=== PATIENT | male | born 1980 | race Two or more races ===

== ENCOUNTER 2024-01-22 08:54 | Outpatient (REF) | payer MEDICAID, SELFPAY ==
--- NOTE | ~2024-01-22 | XR_ITS ---
EXAMINATION: Bilateral knee series CLINICAL INFORMATION: Pain in the knees COMPARISON: None. TECHNIQUE: 3 views of right knee including AP upright. Single AP upright view of the left knee. FINDINGS: Right knee: Patellofemoral compartment: Marginal osteophytes indicative of mild osteoarthritis. No joint space narrowing. The medial and lateral compartments are unremarkable. No effusion. Left knee limited: The medial and lateral compartments and surrounding bone and soft tissues are normal. XR/XR knee LT 1V IMPRESSION: Right knee: Mild osteoarthritis of the patellofemoral compartment. Left knee unremarkable. Electronically signed by: Paul Herndon MD 01/26/2024 01:55 PM EST
--- NOTE | ~2024-01-22 | XR_ITS ---
EXAMINATION: Bilateral knee series CLINICAL INFORMATION: Pain in the knees COMPARISON: None. TECHNIQUE: 3 views of right knee including AP upright. Single AP upright view of the left knee. FINDINGS: Right knee: Patellofemoral compartment: Marginal osteophytes indicative of mild osteoarthritis. No joint space narrowing. The medial and lateral compartments are unremarkable. No effusion. Left knee limited: The medial and lateral compartments and surrounding bone and soft tissues are normal. XR/XR knee RT 3V IMPRESSION: Right knee: Mild osteoarthritis of the patellofemoral compartment. Left knee unremarkable. Electronically signed by: Paul Herndon MD 01/26/2024 01:55 PM EST
== END 2024-01-22 08:55 | disposition home or self-care (01) ==
LOC: HO.HOSX 08:54
PROVIDERS: Visit Provider Physician Assistant
DX: M25.561 Pain in right knee (principal); M25.562 Pain in left knee; M23.91 Unspecified internal derangement of right knee
CPT/HCPCS: 73560; 73562; 99212

== ENCOUNTER 2024-01-22 13:00 | Outpatient (AMB) | payer MEDICAID, SELFPAY ==
--- NOTE | 2024-01-22 13:32 | MHC.OFFVIS ---
Vital Signs 01/22/24 13:39 Height 5 ft 4 in Weight 209 lb BMI 35.9 Handedness Right Intake Visit Reasons: [employer]- Right knee pain Intake Note: Stanley is a 43 year old male who presents today as a new patient for a evaluation of his right knee pain, DOI 01/03/24. Patient reports ongoing pain for about a couple weeks. He states that he lifted a heavy box, when he turned to put it down her heard a pop in his knee. Patient reports he is unable to bend his knee or unable to sit properly. Patient has tried and failed meloxicam with no relief and using bangay with mild relief. Allergies No Known Allergies Allergy (Verified 01/22/24 13:38) HPI HPI [employer]- Right knee pain: Details: 43-year-old male who presents in the office today, as a new patient, for an evaluation of right knee pain. The patient presented as a Walk-In at [facility] Urgent care on 01/09/24 for right knee pain. The patient felt like ?knee came out of place? and experienced sharp pain in his right knee on 01/08/24. He has a history of right knee strain, 7 years ago and his right knee was placed in the cast for 20 days. He worked with physical therapy and noticed he was unable to completely bend his right knee. He was prescribed naproxen 500 mg PO BID. While in the office today, the patient reports experiencing right knee pain ongoing for a couple of weeks. He states that he lifted a heavy box, he heard a pop in his right knee when turning to put the box down. He mentions that he is unable to bend his right knee or to sit properly. He has tried and failed meloxicam with no relief. He is using topical Bangay pain medication with mild relief. [facility] Social History (Updated 01/22/24 @ 13:38 by Danny Maldonado) Alcohol intake: never Patient Tobacco Use Status: Never used Tobacco Current occupational status: unemployed Review of Systems Const All systems reviewed & are unremarkable except as noted in HPI and below Physical Exam Vital Signs: BMI result Body Mass Index 35.9 Const General: cooperative, healthy appearing and no acute distress Resp Effort & Inspection: normal respiratory effort and able to speak in complete sentences Cardio Rate: regular rate Peripheral pulses: Peripheral pulses 2+ throughout GI Palpation (GI): Soft to palpation Skin Lesions: no lesions Rashes: no rashes Extrem Other: Right knee: Normal to inspection. No ecchymosis, erythema, or edema. Range of motion is 0-90 degrees. NVI. Assessment & Plan Assessment & Plan (1) Internal derangement of right knee: Code(s): M23.91 - Unspecified internal derangement of right knee Category: Medical Plan Mr. Perez is a 43-year-old male who presents in the office today, as a new patient, for an evaluation of right knee pain. The patient presented as a Walk-In at [facility] Urgent care on 01/09/24 for right knee pain. The patient felt like ?knee came out of place? and experienced sharp pain in his right knee on 01/08/24. He has a history of right knee strain, 7 years ago and his right knee was placed in the cast for 20 days. He worked with physical therapy and noticed he was unable to completely bend his right knee. He was prescribed naproxen 500 mg PO BID. While in the office today, the patient reports experiencing right knee pain ongoing for a couple of weeks. He states that he lifted a heavy box, he heard a pop in his right knee when turning to put the box down. He mentions that he is unable to bend his right knee or to sit properly. He has tried and failed meloxicam with no relief. She is using topical Bangay pain medication with mild relief. The patient is currently under the care of Aurelio Riojas PA-C at [facility] in [place] and has already ordered an MRI of the right knee to further evaluate the integrity of the knee. I encouraged the patient to continue care with the provider. Should he be uncomfortable or would like to seek a second opinion then I am happy to continue or to take over his care. He understands and accepts this. Follow-up will be PRN, or sooner if needed. X-rays of the right knee, which were obtained while in the office today and were reviewed by me, China Marei PA-C, revealed: Negative for acute fractures or dislocation. Orders: Orders XR knee LT 1V Today M25.569 - Pain in unspecified knee XR knee RT 3V Today M25.569 - Pain in unspecified knee Patient Instructions: Scribed by Pooja Diehl, certified court/medical interpreter, for China Marie PA-C on 01/22/24 at 1:50 pm EST. Coding Level of Care Code New Pt Level 3 (38246) Diagnoses Internal derangement of right knee M23.91
[2024-01-22 13:39] VITALS: BMI 35.9
== END 2024-01-22 14:14 | disposition home or self-care (01) ==
PROVIDERS: PCP Physician Assistant Medical; Visit Provider Physician Assistant
DX: M23.91 Unspecified internal derangement of right knee (principal)
CPT/HCPCS: 99203